=== PATIENT | female | born 1990 | race Caucasian/White ===

== ENCOUNTER → 2016-10-27 | Outpatient (CLI) | payer OTHER ==
--- NOTE | ~2016-10-27 | CR243 ---
[facility]. [facility] A Service of [facility] & [facility] RADIOLOGY TEXT RESULTS PATIENT: AYO GILL LOCATION: [facility] : [birth year] UNIT #: [id number] AGE: [address]: Chuck Spaulding MD SEX: F ORDER DR: [id number] [place] [id number] O MR#: [id number] Acc #: [id number] NAME: AYO GILL : 1990 SEX: F STUDY DATE/TIME: 10/27/2016 14:00 UNIT: [facility] ROOM: STUDY DESCRIPTION: CR Thoracic Spine 3 Views Attending Physician: Chuck Spaulding M.D. Referring Physician: Chuck Spaulding M.D. Ordering Physician: Chuck Spaulding M.D. Primary Care Physician: Chuck Spaulding M.D. MEDICAL IMAGING REPORT This report is preliminary unless electronic signature is present. EXAM Thoracic spine, 10/27/2016 HISTORY 26-year-old female with mid back pain for a few months. No specific injury. COMPARISON None. FINDINGS Three views of the thoracic spine demonstrate no acute fracture or subluxation. Vertebral body heights and alignment are normal. Disc spaces are normal. Cervicothoracic junction is unremarkable. IMPRESSION Negative thoracic spine. Dictated by... Alex Hurt M.D. THIS IS AN ELECTRONICALLY VERIFIED REPORT Alex Hurt M.D. at 10/28/2016 8:33 AM CONNIE/sophia TD: 10/28/2016 00:38 JOB #: [id number] MEDICAL IMAGING REPORT Page 1 of 1
--- NOTE | ~2016-10-27 | CR181 ---
[facility]. [facility] A Service of [facility] & [facility] RADIOLOGY TEXT RESULTS PATIENT: AYO GILL LOCATION: [facility] : 86 UNIT #: [id number] AGE: [address]: Chuck Spaulding MD SEX: F ORDER DR: [id number] [place] [id number] O MR#: [id number] Acc #: [id number] NAME: AYO GILL : 1990 SEX: F STUDY DATE/TIME: 10/27/2016 14:00 UNIT: [facility] ROOM: STUDY DESCRIPTION: CR Lumbar Spine 2 or 3 Views Attending Physician: Chuck Spaulding M.D. Referring Physician: Chuck Spaulding M.D. Ordering Physician: Chuck Spaulding M.D. Primary Care Physician: Chuck Spaulding M.D. MEDICAL IMAGING REPORT This report is preliminary unless electronic signature is present. EXAM Lumbar spine, 10/27/2016 HISTORY 26-year-old female with low back pain for a few months. No specific injury. COMPARISON None. FINDINGS Three views of the lumbar spine demonstrate no acute fracture or subluxation. Vertebral body heights and alignment are normal. Disc spaces and facets are normal. Sacrum and SI joints intact. IMPRESSION Negative lumbar spine. Dictated by... Alex Hurt M.D. THIS IS AN ELECTRONICALLY VERIFIED REPORT Alex Hurt M.D. at 10/28/2016 8:33 AM CONNIE/sophia TD: 10/28/2016 00:40 JOB #: [id number] MEDICAL IMAGING REPORT Page 1 of 1
== END | disposition home or self-care (01) ==
LOC: SRAD 13:51
DX: M54.6 Pain in thoracic spine (principal)
CPT/HCPCS: 72072; 72100